=== PATIENT | female | born 1950 | race Caucasian/White ===

== ENCOUNTER 2022-09-02 15:39 | Inpatient (IN) ==
[2022-09-02] MEDS ORDERED: PEPCID TAB 20 MG ONE (20:52)
[2022-09-02] MEDS: PEPCID TAB 20 MG PO SCH (20:59)
[2022-09-02] MEDS: NORCO 5/325 MG TAB PO PRN (20:59)
[2022-09-02] MEDS: AMBIEN PO PRN (22:00)
--- NOTE | 2022-09-02 22:10 | DR.H&P ---
H&P History & Physical for Day of: H&P Date: 09/02/22 Chief Complaint Chief Complaint: Left leg pain and draining area of left proximal anterior thigh. Evaluation included CT showing 7 x 7.5x 6 cm abscess extending down to the left femoral arthroplasty. Left LE arterial ultrasound showed no arterial flow on the left leg from the popliteal to the foot. Venous doppler shows no DVT. Significant pain and swelling of both legs with skin changes consistent with venous insufficiency as well. Allergies Allergies Allergy/AdvReac Type Severity Reaction Status Date / Time No Known Drug Allergies Allergy Verified 09/02/22 19:24 [NKDA] History of Present Illness History of Present Illness: See above. History of diabetes , chronic pain and hypertension Past Medical History Past Medical History: Arthritis (b/l knee replacments, left hip replacement x 2), Diabetes, Dyslipidemia, GERD and Hypertension Past Surgical History Surgical History: Joint Replacement (both knees and left hip twice. ) Family History Family Medical History: Diabetes Mellitus Social History Does patient currently use any type of tobacco product: No Have you used tobacco products in the last 12 months: No Does any household member use tobacco: No Alcohol Use: None Medications Home Medications: No Known Drug Allergies [NKDA] Allergy (Verified 09/02/22 19:24) Labs Labs: WBC=8.5, HGB=11.4, IQA=342 K, MK=035, K+=3.5, GH=711, CO2=25, CR=1.0,BUN=15, CA=8.7, ONYOOVB=452 Review of Systems Constitutional: See HPI Eyes: No Symptoms Reported ENT: No Symptoms Reported Respiratory: No Symptoms Reported Cardiovascular: No Symptoms Reported Gastrointestinal: No Symptoms Reported Genitourinary: No Symptoms Reported Musculoskeletal: See HPI Skin: See HPI Neurological: No Symptoms Reported Physical Exam Vital Signs: Respiratory Rate 20 T=97.6, P=70, 121/70 Oriented: Normal, Time, Person and Place Eyes: Normal Ear: Normal Nose: Normal Throat: Normal Respiratory: Clear Throughout Cardiovascular: Normal : Normal Auscultation: Bowel Sounds: Normal Palpation: Normal Tenderness: Normal Skin: Other (Purulent drainage from anterior proximal anterior thigh, skin discoloration of then LE consistent with venous insufficiency) Musculoskeletal: Normal Psychiatric: Normal Mood Description: Calm Affect: Normal Speech Pattern: Clear Assessment/Plan (1) Abscess of left thigh: Status: Acute Plan: incise and drain left thigh abscess in OR tomorrow and place wound vacuum. IV antibiotics (2) Atherosclerosis of [place] arteries of extremities with rest pain, left leg: Status: Acute Plan: After we deal with the abscess may need revascularization of the left leg. Will need to study the right leg as well. (3) Type 2 diabetes mellitus without complications: Status: Acute Plan: sliding scale insulin (4) Essential (primary) hypertension: Status: Acute Plan: home medications (5) Gastro-esophageal reflux disease without esophagitis: Status: Acute Plan: protonix (6) Arthritis: Status: Acute Review H&P Reviewed: Yes Patient was examined?: Yes
[2022-09-02 22:35] VITALS: BMI 30.9
[2022-09-02] MEDS: LR 1,000 ML IV 1,000 ML IV SCH (22:59)
[2022-09-02] MEDS: ZOSYN VIAL 3.375 GRAMS 3.375 G in NS 100 ML IV 100 ML IV SCH (23:00)
[2022-09-03] MEDS: ZOSYN VIAL 3.375 GRAMS 3.375 G in NS 100 ML IV 100 ML IV SCH ×3 (04:59→21:02)
[2022-09-03] MEDS: NORCO 5/325 MG TAB PO PRN ×3 (05:00→18:52)
[2022-09-03 06:44] LABS: ALANINE AMINOTRANSFERASE 8 Units/L (12-78); ALBUMIN 2.2 g/dL (3.4-5.0); ALKALINE PHOSPHATASE 135 Units/L (46-116); ASPARTATE AMINO TRANSFERASE 23 Units/L (15-37); BLOOD UREA NITROGEN 10 mg/dL (7-18); CALCIUM 8.4 mg/dL (8.5-10.1); CARBON DIOXIDE 25.5 mmol/L (21-32); CHLORIDE 108 mmol/L (98-107); COR CA(FOR HYPOALB) 9.8 mg/dL (8.5-10.1); CREATININE 0.94 mg/dL (0.55-1.02); SODIUM 143 mmol/L (136-145); TOTAL PROTEIN 7.5 g/dL (6.4-8.2); eGFR NON BLACK RACES > 60 (>60)
[2022-09-03 06:47] LABS: BASOPHILS # (AUTO) 0.1 X10^3/uL (0.0-0.1); BASOPHILS % (AUTO) 1.3 % (0.2-1.0); EOSINOPHILS # (AUTO) 0.3 x10^3/uL (0.0-0.2); EOSINOPHILS % (AUTO) 3.5 % (0.9-2.9); HEMATOCRIT 32.7 % (36.0-47.0); HEMOGLOBIN 10.9 g/dL (12.0-16.0); LYMPHOCYTES # (AUTO) 2.1 X10^3/uL (1.3-2.9); LYMPHOCYTES % (AUTO) 24.6 % (21.0-51.0); MEAN CORPUSCULAR HEMOGLOBIN 27.1 pg (27.0-34.0); MEAN CORPUSCULAR HGB CONC 33.5 g/dL (33.0-35.0); MEAN CORPUSCULAR VOLUME 81.1 fL (80.0-100.0); MEAN PLATELET VOLUME 8.7 fL (7.4-11.0); MONOCYTES # (AUTO) 0.6 x10^3/uL (0.3-0.8); MONOCYTES % (AUTO) 6.8 % (0.0-13.0); NEUTROPHILS # (AUTO) 5.5 x10^3/uL (2.2-4.8); NEUTROPHILS % (AUTO) 63.8 % (42.0-75.0); RED BLOOD COUNT 4.03 X10^6/uL (3.5-5.4); RED CELL DISTRIBUTION WIDTH 17.1 % (11.6-16.5); WHITE BLOOD COUNT 8.6 X10^3/uL (3.6-10.0)
[2022-09-03 07:40] LABS: ANISOCYTOSIS SLIGHT; PLATELET MORPHOLOGY COMMENT NORMAL (NORMAL)
[2022-09-03] MEDS: ZESTRIL TAB 40 MG PO SCH (09:03)
[2022-09-03] MEDS: PEPCID TAB 20 MG PO SCH ×2 (09:27→21:01)
[2022-09-03] MEDS: ZyrTEC TAB 10 MG PO SCH (09:28)
[2022-09-03] MEDS: PROTONIX TAB 40 MG PO SCH (09:28)
[2022-09-03] MEDS: LR 1,000 ML IV 1,000 ML IV SCH (12:05)
--- NOTE | 2022-09-03 13:19 | RAD ---
HISTORYpre op vascular procedure Relevant Clinical InformationSTUDYCHEST, 1 VIEWCOMPARISONNone available.FINDINGSThe trachea is midline. The cardiomediastinal silhouette is enlarged. Chronic interstitial densities/changes are seen throughout the lung re[place], suggesting chronic bronchitis. Please correlate medically. The remaining lungs are clear without focal infiltrate or effusion. The bony thorax is unremarkable.IMPRESSIONAs above.Electronically signed by: KEVIN FELDER III (Sep 03, 2022 13:17:46)
[2022-09-03] MEDS ORDERED: NS 100 ML IV 100 ML ONE (14:49)
[2022-09-03] MEDS ORDERED: NS 1,000 ML IV 1,000 ML ONE (14:49)
[2022-09-03] MEDS ORDERED: ANCEF VIAL 1 GRAM ONE (14:49)
[2022-09-03] MEDS ORDERED: DIPRIVAN VIAL 40 ML ONE (15:07)
[2022-09-03] MEDS ORDERED: XYLOCAINE 2 % (PLAIN) ONE (15:07)
[2022-09-03] MEDS ORDERED: FENTANYL VIAL INJ 100 mcg ONE (15:11)
[2022-09-03] MEDS ORDERED: MARCAINE/EPINEPHRINE ONE (15:19)
[2022-09-03] MEDS ORDERED: BETADINE SOLN ONE (15:26)
[2022-09-03] MEDS ORDERED: KETAMINE HCL ONE (15:28)
--- NOTE | 2022-09-03 16:01 | OR.IMMED ---
IMMEDIATE POST-OP NOTE Immediate Post-Op Note Pre-Op Diagnosis: abscess left anterior proximal thigh Post-Op Diagnosis: same, no obvious direct connection to the stem of the hip replacement Procedure: Incise and drain left thigh abscess, place wound vacuum Description of Procedure: see operative note Surgeon/Customer Success Associate: Sabino Findings: as above, Abscess cavity 10 x 5 x 7 cm Estimated Blood Loss: minimal Complications: none Progress Notes: return to floor, continue IV antibiotics and wound vacuum, Will address occluded arterial flow of left leg next week. Final Diagnosis: As above
[2022-09-03] MEDS: AMBIEN PO PRN (21:01)
[2022-09-04] MEDS: NORCO 5/325 MG TAB PO PRN ×4 (00:58→20:10)
[2022-09-04] MEDS: LR 1,000 ML IV 1,000 ML IV SCH ×2 (00:58→14:05)
[2022-09-04] MEDS: ZOSYN VIAL 3.375 GRAMS 3.375 G in NS 100 ML IV 100 ML IV SCH ×3 (05:25→21:32)
[2022-09-04 06:41] LABS: BASOPHILS # (AUTO) 0.1 X10^3/uL (0.0-0.1); BASOPHILS % (AUTO) 1.2 % (0.2-1.0); EOSINOPHILS # (AUTO) 0.2 x10^3/uL (0.0-0.2); EOSINOPHILS % (AUTO) 3.3 % (0.9-2.9); HEMOGLOBIN 10.3 g/dL (12.0-16.0); LYMPHOCYTES % (AUTO) 29.3 % (21.0-51.0); MEAN CORPUSCULAR HEMOGLOBIN 26.8 pg (27.0-34.0); MEAN CORPUSCULAR HGB CONC 33.1 g/dL (33.0-35.0); MEAN CORPUSCULAR VOLUME 80.9 fL (80.0-100.0); MEAN PLATELET VOLUME 7.7 fL (7.4-11.0); MONOCYTES # (AUTO) 0.5 x10^3/uL (0.3-0.8); MONOCYTES % (AUTO) 7.1 % (0.0-13.0); NEUTROPHILS # (AUTO) 4.1 x10^3/uL (2.2-4.8); NEUTROPHILS % (AUTO) 59.1 % (42.0-75.0); RED BLOOD COUNT 3.84 X10^6/uL (3.5-5.4); RED CELL DISTRIBUTION WIDTH 17.2 % (11.6-16.5)
[2022-09-04 06:53] LABS: ALANINE AMINOTRANSFERASE 8 Units/L (12-78); ALBUMIN 2.1 g/dL (3.4-5.0); ALKALINE PHOSPHATASE 133 Units/L (46-116); ASPARTATE AMINO TRANSFERASE 19 Units/L (15-37); BLOOD UREA NITROGEN 8 mg/dL (7-18); CALCIUM 8.1 mg/dL (8.5-10.1); CARBON DIOXIDE 24.2 mmol/L (21-32); CHLORIDE 107 mmol/L (98-107); COR CA(FOR HYPOALB) 9.6 mg/dL (8.5-10.1); COR NA(FOR HYPERGLY) 142 mmol/L (136-145); CREATININE 0.94 mg/dL (0.55-1.02); SODIUM 142 mmol/L (136-145); TOTAL PROTEIN 6.9 g/dL (6.4-8.2); eGFR NON BLACK RACES > 60 (>60)
[2022-09-04] MEDS ORDERED: KLOR-CON PO PRN (07:14)
[2022-09-04] MEDS ORDERED: POTASSIUM CHL 60 MEQ/NS 0.45% 500 ML IV PRN (07:14)
[2022-09-04] MEDS ORDERED: POTASSIUM CHLORIDE LIQ 20 MEQ UDC PO PRN (07:14)
[2022-09-04] MEDS ORDERED: MICRO K EXTEN CAP 10 MEQ PO PRN (07:14)
[2022-09-04] MEDS ORDERED: POTASSIUM CHL 40 MEQ/NS 0.45% 500 ML IV PRN (07:14)
[2022-09-04] MEDS ORDERED: K-RIDER 10 MEQ/NS 100 ML 10 MEQ/100 ML BAG IV PRN (07:14)
[2022-09-04] MEDS: ZESTRIL TAB 40 MG PO SCH (08:27)
[2022-09-04] MEDS: PEPCID TAB 20 MG PO SCH ×2 (08:27→20:42)
[2022-09-04] MEDS: ZyrTEC TAB 10 MG PO SCH (08:28)
[2022-09-04] MEDS: PROTONIX TAB 40 MG PO SCH (08:28)
--- NOTE | 2022-09-04 08:56 | CT ---
HISTORYNON HEALING WOUND LT LEG. Hypertension. Diabetes mellitus.STUDYCTA AORTA WITH RUNOFFCOMPARISONNoneTECHNIQUEMultiple CT axial images of the abdomen, pelvis, and lower extremity runoff were obtained before and after using IV contrast. 3D reconstructions utilizing axial MIPS imaging was performed and reviewed. Dose reduction techniques including Automated Exposure Control (AEC) and adjustment of mA and kV were utilized.Stenoses are measured using NASCET criteria.FINDINGSWithout contrast: Atherosclerotic calcification is present in the coronary arteries, aorta, and major branches. Bilateral kidney stones are present. Largest is lower pole right kidney measuring 14 mm. Bilateral common iliac vein stents are present. Left hip prosthesis is present. Bilateral knee prostheses are present. There is also fixation hardware in the right foot.With contrast: The aorta has a normal caliber with no aneurysm, dissection, or stenosis. All 3 mesenteric vessels are patent. There is a single patent artery to each kidney.Common iliac and external iliac arteries are patent with no significant stenosis. Both internal iliac arteries are also patent.Left leg: Moderate diffuse disease is seen in the superficial femoral artery and in the popliteal artery without focal stenosis. All 3 vessels are patent at the trifurcation in the proximal calf. These extend to the foot. The dominant vessel is the posterior tibial artery.Right leg: Superficial femoral artery is widely patent without focal stenosis. There is a moderate to severe focal stenosis in the popliteal artery above the knee joint surface. The anterior tibial artery is patent and is the only single continuous vessel to the foot. Tibioperoneal trunk is occluded but geniculate collaterals reconstitute the peroneal artery in the posterior tibial artery high in the calf. The reconstituted vessels also extend to the foot.Body: Right adrenal nodule measures 29 mm. This has indeterminate Hounsfield units. Statistically it is probably an adenoma but it does not meet the imaging criteria for this.No hydronephrosis. No mass or inflammation. There are diverticula in the colon. But there is no wall thickening or pericolonic edema to suggest acute diverticulitis. Inguinal lymphadenopathy is borderline, left side more than right. This is probably reactive. There is atrophy of the anterior compartment musculature left thigh when compared to the right side. Subcutaneous edema is seen in the lower legs and ankles bilaterally, left side more than right.IMPRESSION1. Moderate atherosclerosis but with no significant inflow or outflow stenosis to the left foot2. Moderate right popliteal artery focal stenosis with single-vessel runoff to the right foot3. Indeterminate right adrenal nodule4. Nonobstructing renal calculi5. Colonic diverticulaElectronically signed by: Juan Diego Romeo (Sep 04, 2022 08:54:45)
[2022-09-04] MEDS: K-DUR TAB 20 MEQ PO PRN ×2 (10:34→17:48)
[2022-09-04] MEDS: NovoLIN R (or HumuLIN R) SC PRN ×2 (11:18→17:48)
[2022-09-04] MEDS ORDERED: CATAPRES TAB 0.1 MG PO ONE (12:41)
[2022-09-04] MEDS: FLAGYL TAB 500 MG PO SCH ×2 (13:19→21:33)
[2022-09-04] MEDS: IMODIUM CAP 2 MG PO PRN (14:10)
--- NOTE | 2022-09-04 18:53 | NOTE.SOAP ---
Soap Note Note for Day of Date of Exam: 09/04/22 Subjective Data Subjective Data: POD # 1 after I and D of left thight abscess and placement of wound vacuum. Had onset diarrhea anss stolli positive for C. difficile . Had CTA of aorta with runoff. Noted by nursing service to be hypertensive. Objective Data Temperature: 97.3 F Pulse Rate: 82 Respiratory Rate: 18 Blood Pressure: 171/72 O2 Sat by Pulse Oximetry: 94 Objective Data: Wound vacuum in place left thigh. Hypertensive despite her home mediactions , Onset of diarrhea and stool positive for C. difficile. CTA shows no obvious arterial flow abnormality of the left leg. Assessment Assessment: 1) abscess left thigh 2) Hypertension) 3) C.difficile 4) Question of arterial problem left leg. Plan Plan: Continue wound vaccum and IV antibiotics, PO Flagyl for C. difficile, Hypertension protocol , Will not need arterial intervention left leg. Will seek home health consult.
[2022-09-04] MEDS: AMBIEN PO PRN (20:45)
[2022-09-04] MEDS: MAGNESIUM SULFATE 1 GRAM/100 mL PREMIX 1 G/100 ML BAG IV PRN ×2 (21:34→22:31)
[2022-09-05] MEDS: ZOSYN VIAL 3.375 GRAMS 3.375 G in NS 100 ML IV 100 ML IV SCH ×3 (05:14→21:28)
[2022-09-05] MEDS: LR 1,000 ML IV 1,000 ML IV SCH ×2 (05:15→17:17)
[2022-09-05 05:17] LABS: BASOPHILS # (AUTO) 0.1 X10^3/uL (0.0-0.1); EOSINOPHILS # (AUTO) 0.3 x10^3/uL (0.0-0.2); EOSINOPHILS % (AUTO) 4.7 % (0.9-2.9); HEMATOCRIT 30.7 % (36.0-47.0); HEMOGLOBIN 10.1 g/dL (12.0-16.0); LYMPHOCYTES # (AUTO) 1.9 X10^3/uL (1.3-2.9); LYMPHOCYTES % (AUTO) 28.9 % (21.0-51.0); MEAN CORPUSCULAR HEMOGLOBIN 26.6 pg (27.0-34.0); MEAN CORPUSCULAR VOLUME 80.7 fL (80.0-100.0); MEAN PLATELET VOLUME 7.7 fL (7.4-11.0); MONOCYTES # (AUTO) 0.4 x10^3/uL (0.3-0.8); MONOCYTES % (AUTO) 6.7 % (0.0-13.0); NEUTROPHILS # (AUTO) 3.8 x10^3/uL (2.2-4.8); NEUTROPHILS % (AUTO) 57.7 % (42.0-75.0); WHITE BLOOD COUNT 6.7 X10^3/uL (3.6-10.0)
[2022-09-05] MEDS: FLAGYL TAB 500 MG PO SCH ×3 (05:18→21:28)
[2022-09-05] MEDS: NORCO 5/325 MG TAB PO PRN ×3 (05:20→20:15)
[2022-09-05 05:32] LABS: ALANINE AMINOTRANSFERASE 12 Units/L (12-78); ALBUMIN 2.1 g/dL (3.4-5.0); ALKALINE PHOSPHATASE 133 Units/L (46-116); ASPARTATE AMINO TRANSFERASE 21 Units/L (15-37); BLOOD UREA NITROGEN 9 mg/dL (7-18); CALCIUM 8.1 mg/dL (8.5-10.1); CARBON DIOXIDE 26.4 mmol/L (21-32); CHLORIDE 110 mmol/L (98-107); COR CA(FOR HYPOALB) 9.6 mg/dL (8.5-10.1); COR NA(FOR HYPERGLY) 144 mmol/L (136-145); CREATININE 1.03 mg/dL (0.55-1.02); SODIUM 144 mmol/L (136-145); TOTAL PROTEIN 7.1 g/dL (6.4-8.2); eGFR NON BLACK RACES 56 (>60)
[2022-09-05] MEDS: PROTONIX TAB 40 MG PO SCH (09:03)
[2022-09-05] MEDS: ZESTRIL TAB 40 MG PO SCH (09:03)
[2022-09-05] MEDS: ZyrTEC TAB 10 MG PO SCH (09:03)
[2022-09-05] MEDS: PEPCID TAB 20 MG PO SCH ×2 (09:03→20:14)
[2022-09-05] MEDS: NovoLIN R (or HumuLIN R) SC PRN ×2 (11:35→17:17)
[2022-09-05] MEDS: IMODIUM CAP 2 MG PO PRN (14:10)
[2022-09-05] MEDS: AMBIEN PO PRN (21:00)
--- NOTE | 2022-09-05 23:16 | NOTE.SOAP ---
Soap Note Note for Day of Date of Exam: 09/05/22 Subjective Data Subjective Data: POD # 2 left thigh after I and D abscess of left thight. CTA shows no obvious correctable arterial problem left leg. Objective Data Temperature: 98 F Pulse Rate: 87 Respiratory Rate: 20 Blood Pressure: 175/72 O2 Sat by Pulse Oximetry: 91 Objective Data: Wound vacuum left thigh working well. Cultures growing Pseudomonas growing and sensitive to Cipro. Assessment Assessment: Abscess left thigh. Plan Plan: Continue wound vacuum and d/c IV Zosyn. Start po Cipro.
[2022-09-06] MEDS: LR 1,000 ML IV 1,000 ML IV SCH ×3 (04:49→17:15)
[2022-09-06 05:13] LABS: BASOPHILS # (AUTO) 0.1 X10^3/uL (0.0-0.1); BASOPHILS % (AUTO) 1.2 % (0.2-1.0); EOSINOPHILS # (AUTO) 0.3 x10^3/uL (0.0-0.2); EOSINOPHILS % (AUTO) 4.1 % (0.9-2.9); HEMATOCRIT 30.3 % (36.0-47.0); LYMPHOCYTES # (AUTO) 2.1 X10^3/uL (1.3-2.9); LYMPHOCYTES % (AUTO) 26.6 % (21.0-51.0); MEAN CORPUSCULAR HEMOGLOBIN 26.7 pg (27.0-34.0); MEAN CORPUSCULAR HGB CONC 33.1 g/dL (33.0-35.0); MEAN CORPUSCULAR VOLUME 80.7 fL (80.0-100.0); MEAN PLATELET VOLUME 7.9 fL (7.4-11.0); MONOCYTES # (AUTO) 0.5 x10^3/uL (0.3-0.8); MONOCYTES % (AUTO) 6.2 % (0.0-13.0); NEUTROPHILS # (AUTO) 4.9 x10^3/uL (2.2-4.8); NEUTROPHILS % (AUTO) 61.9 % (42.0-75.0); RED BLOOD COUNT 3.75 X10^6/uL (3.5-5.4); RED CELL DISTRIBUTION WIDTH 16.9 % (11.6-16.5); WHITE BLOOD COUNT 7.9 X10^3/uL (3.6-10.0)
[2022-09-06] MEDS: FLAGYL TAB 500 MG PO SCH ×3 (05:15→21:04)
[2022-09-06 05:22] LABS: BLOOD UREA NITROGEN 13 mg/dL (7-18); CALCIUM 7.7 mg/dL (8.5-10.1); CARBON DIOXIDE 24.5 mmol/L (21-32); CHLORIDE 107 mmol/L (98-107); COR NA(FOR HYPERGLY) 143 mmol/L (136-145); CREATININE 1.09 mg/dL (0.55-1.02); SODIUM 142 mmol/L (136-145); eGFR NON BLACK RACES 53 (>60)
[2022-09-06 05:42] LABS: ALANINE AMINOTRANSFERASE 10 Units/L (12-78); ALBUMIN 2.1 g/dL (3.4-5.0); ALKALINE PHOSPHATASE 158 Units/L (46-116); ASPARTATE AMINO TRANSFERASE 16 Units/L (15-37); COR CA(FOR HYPOALB) 9.2 mg/dL (8.5-10.1); TOTAL PROTEIN 6.9 g/dL (6.4-8.2)
[2022-09-06] MEDS: PEPCID TAB 20 MG PO SCH ×2 (08:16→20:35)
[2022-09-06] MEDS: ZyrTEC TAB 10 MG PO SCH (08:16)
[2022-09-06] MEDS: CIPRO TAB 500 MG PO SCH ×2 (08:17→20:34)
[2022-09-06] MEDS: ZESTRIL TAB 40 MG PO SCH (08:17)
[2022-09-06] MEDS: PROTONIX TAB 40 MG PO SCH (08:17)
[2022-09-06] MEDS ORDERED: PHARMACY CONSULT - LOVENOX XX SCH (12:00)
[2022-09-06] MEDS: LOVENOX INJ 40 MG SYR SC SCH (12:45)
[2022-09-06] MEDS: MOTRIN TAB 600 MG PO PRN ×2 (13:57→20:34)
--- NOTE | 2022-09-06 15:57 | DR.OPNOTE ---
OP NOTE Pre-Op Diagnosis: Abscess left anterior thigh Post-Op Diagnosis: same Procedure Date Date Of Procedure: 09/03/22 Procedure: PROCEDURE : INCISION AND DRAINAGE LEFT ANTERIOR PROXIMAL THIGH ABSCESS NARRATIVE : The patient was taken to the operative suite and placed in the Supine position. The left anterior thigh was prepped and draped in sterile fashion. The patient was administered intravenous sedation which was supervised by myself. Time out for the procedure obtained. The skin overlying the anterior thigh wound measuring 10 cm in diameter was infiltrated with 0. 5% Marcaine and a 15 blade knife used to make a 10 cm vertical incision. This was irrigated with normal saline .The wound did not appear to directly contact the hip prosthesis. A deep layer of black foam placed in the base of the wound . An additional layer of black foam placed over this and this all covered with an adhesive drape. A one inch square incision made in the middle of the adhesive drape and the circular trackpad applied to this and the entire wound placed on suction at 150 mm of mercury as continuous section. The patient was taken back to the floor in good condition. Type of Anesthesia: Local (0.5% Marcaine) Anesthesia Comment: plus MAC Findings: 10x5x7 cm abscess left anterior thigh. Clinically does not involve left hip replacement. Type of Fluids Used:: Lactated Ringers EBL: minimal Drains/Tubes Comment: Wound vacuum placed in this wound Cultures: obtained on admission Complications:: none Needle/Sponge Count:: correct Disposition/Condition: Pt. tolerated procedure without difficulty. Extubated in the OR and taken to PACU in stable condition.
[2022-09-06] MEDS: NovoLIN R (or HumuLIN R) SC PRN ×2 (16:48→20:33)
--- NOTE | 2022-09-06 19:23 | NOTE.SOAP ---
Soap Note Note for Day of Date of Exam: 09/06/22 Subjective Data Subjective Data: Patient noted by nursing staff to be confused this AM. Received Ambien both nights and only takes it every other night at home. Now doing well, awake and alert . CTA reviewed and I agree she does nort need any immediate arterial intervention left leg and CTA does not agree with arterial doppler done at [place]. Wound vacuum is working well for the left thigh wound. Objective Data Temperature: 98.6 F Pulse Rate: 84 Respiratory Rate: 22 Blood Pressure: 181/85 O2 Sat by Pulse Oximetry: 94 Objective Data: Wound intact with wound vacuum in place. Both feet are warm. Assessment Assessment: Abscess left thigh s/p incision, drainage and placement of wound vacuum. Plan Plan: Continue antibiotics and wound vacuum. Will seek Home Health to manage wound vacuum and discharge home.
[2022-09-07] MEDS: MOTRIN TAB 600 MG PO PRN ×2 (04:11→08:54)
[2022-09-07] MEDS: FLAGYL TAB 500 MG PO SCH ×3 (05:07→21:11)
[2022-09-07] MEDS: LR 1,000 ML IV 1,000 ML IV SCH ×3 (06:00→21:11)
[2022-09-07] MEDS: ZyrTEC TAB 10 MG PO SCH (08:43)
[2022-09-07] MEDS: PROTONIX TAB 40 MG PO SCH (08:43)
[2022-09-07] MEDS: ZESTRIL TAB 40 MG PO SCH (08:43)
[2022-09-07] MEDS: CIPRO TAB 500 MG PO SCH ×2 (08:43→20:55)
[2022-09-07] MEDS: PEPCID TAB 20 MG PO SCH ×2 (08:43→20:54)
[2022-09-07] MEDS: LOVENOX INJ 40 MG SYR SC SCH (08:44)
[2022-09-07] MEDS ORDERED: DILAUDID INJ ONE (17:36)
[2022-09-07] MEDS ORDERED: DILAUDID INJ IVP ONE (17:49)
--- NOTE | 2022-09-07 18:01 | NOTE.SOAP ---
Soap Note Note for Day of Date of Exam: 09/07/22 Subjective Data Subjective Data: Continues to improve, diarrhea better. Wound without problem. On PO Cipro for sensitive pseudomonas. Awaiting completion of Home Health Consult for home wound vacuum. Objective Data Temperature: 97.7 F Pulse Rate: 83 Respiratory Rate: 20 Blood Pressure: 142/66 Objective Data: Patient has been reported to be confused but is probably related to medications. Patient alert and oriented on my questioning. Wound vacuum changed and wound is smaller with good appearance of granulation, Now 7 x 2.5x5 cm Assessment Assessment: S/P I and D of abscess left anterior thigh. Wound improving . CTA shows no significant arterial lower extremity problem as presumed based upon arterial doppler performed in [place]. Plan Plan: D/C with home health, wound vacuum and po antibiotics when arranged .
[2022-09-07] MEDS: NORCO 5/325 MG TAB PO PRN (20:55)
[2022-09-08] MEDS: LR 1,000 ML IV 1,000 ML IV SCH ×3 (03:49→21:22)
[2022-09-08] MEDS: NORCO 5/325 MG TAB PO PRN ×3 (03:55→21:18)
[2022-09-08] MEDS: FLAGYL TAB 500 MG PO SCH ×3 (05:09→21:22)
[2022-09-08 05:38] LABS: BASOPHILS # (AUTO) 0.1 X10^3/uL (0.0-0.1); BASOPHILS % (AUTO) 1.2 % (0.2-1.0); EOSINOPHILS # (AUTO) 0.4 x10^3/uL (0.0-0.2); EOSINOPHILS % (AUTO) 4.7 % (0.9-2.9); HEMATOCRIT 32.7 % (36.0-47.0); HEMOGLOBIN 10.7 g/dL (12.0-16.0); LYMPHOCYTES # (AUTO) 2.2 X10^3/uL (1.3-2.9); LYMPHOCYTES % (AUTO) 26.1 % (21.0-51.0); MEAN CORPUSCULAR HEMOGLOBIN 26.6 pg (27.0-34.0); MEAN CORPUSCULAR HGB CONC 32.8 g/dL (33.0-35.0); MEAN CORPUSCULAR VOLUME 81.2 fL (80.0-100.0); MEAN PLATELET VOLUME 8.2 fL (7.4-11.0); MONOCYTES # (AUTO) 0.5 x10^3/uL (0.3-0.8); MONOCYTES % (AUTO) 6.4 % (0.0-13.0); NEUTROPHILS # (AUTO) 5.2 x10^3/uL (2.2-4.8); NEUTROPHILS % (AUTO) 61.6 % (42.0-75.0); RED BLOOD COUNT 4.03 X10^6/uL (3.5-5.4); RED CELL DISTRIBUTION WIDTH 17.3 % (11.6-16.5); WHITE BLOOD COUNT 8.5 X10^3/uL (3.6-10.0)
[2022-09-08 05:49] LABS: ALANINE AMINOTRANSFERASE 13 Units/L (12-78); ALBUMIN 2.3 g/dL (3.4-5.0); ALKALINE PHOSPHATASE 144 Units/L (46-116); ASPARTATE AMINO TRANSFERASE 25 Units/L (15-37); BLOOD UREA NITROGEN 11 mg/dL (7-18); CALCIUM 8.5 mg/dL (8.5-10.1); CARBON DIOXIDE 24.2 mmol/L (21-32); CHLORIDE 106 mmol/L (98-107); COR CA(FOR HYPOALB) 9.9 mg/dL (8.5-10.1); COR NA(FOR HYPERGLY) 143 mmol/L (136-145); CREATININE 1.13 mg/dL (0.55-1.02); SODIUM 142 mmol/L (136-145); TOTAL PROTEIN 7.1 g/dL (6.4-8.2); eGFR NON BLACK RACES 50 (>60)
[2022-09-08] MEDS: LOVENOX INJ 40 MG SYR SC SCH (09:38)
[2022-09-08] MEDS: PROTONIX TAB 40 MG PO SCH (09:39)
[2022-09-08] MEDS: PEPCID TAB 20 MG PO SCH ×2 (09:39→21:17)
[2022-09-08] MEDS: ZESTRIL TAB 40 MG PO SCH (09:39)
[2022-09-08] MEDS: CIPRO TAB 500 MG PO SCH ×2 (09:39→21:17)
[2022-09-08] MEDS: ZyrTEC TAB 10 MG PO SCH (09:39)
--- NOTE | 2022-09-08 17:31 | W.DIS.FURT ---
Summary of Discharge Discharge Summary of Date Date of Exam: 09/08/22 Admission Date Date of Admission: 09/02/22 Admission Diagnosis Hospital Course: 71 year old female referred from the emergency room in [place], [place] with an abscess to the left anterior proximal thigh with questionable involvement of a left hip prosthesis. Also noted on ultrasound exam to have no arterial flow of the right lower extremity. Patient was admitted and placed on IV antibiotics and underwent incision and drainage of this left thigh abscess with placement of wound vacuum of this 10 by 5 by 7 cm abscess. She grew pseudomonas sensitive to Ciprofloxacin and has been changed to po Cipro. CT angiogram showed no significant flow abnormality of the left leg. Patient will be discharged home on her usual medications plus Percocet 5 mg tablets, 1 tablet every 6 hrs PRN pain and Cipro 500 mg BID for another seven days. Home health will change the wound vacuum twice a week and I will see her in the office next week. Vital Signs: Vital Signs (72 hours) 09/05/22 23:16 09/06/22 19:23 09/07/22 18:01 Temperature 98 F 98.6 F 97.7 F Pulse Rate 87 84 83 Pulse Rate [Brachial] Respiratory Rate 20 22 20 Blood Pressure 175/72 181/85 142/66 Blood Pressure [Left Arm] O2 Sat by Pulse Oximetry 91 L 94 L Oxygen Delivery Method 09/05/22 20:15 09/05/22 20:00 09/05/22 19:00 Temperature 98 F Pulse Rate Pulse Rate [Brachial] 87 Respiratory Rate 18 20 Blood Pressure Blood Pressure [Left Arm] 175/73 O2 Sat by Pulse Oximetry 91 L Oxygen Delivery Method Room Air Room Air 09/05/22 21:15 09/05/22 23:42 09/06/22 03:57 Temperature 97.8 F 98.4 F Pulse Rate Pulse Rate [Brachial] 89 91 H Respiratory Rate 18 21 20 Blood Pressure Blood Pressure [Left Arm] 164/72 150/68 O2 Sat by Pulse Oximetry 92 L 90 L Oxygen Delivery Method 09/06/22 08:00 09/06/22 07:00 09/06/22 12:00 Temperature 99.3 F 98.1 F Pulse Rate Pulse Rate [Brachial] 92 H 78 Respiratory Rate 22 20 Blood Pressure Blood Pressure [Left Arm] 167/72 152/67 O2 Sat by Pulse Oximetry 91 L 92 L Oxygen Delivery Method Room Air Room Air Room Air 09/06/22 13:57 09/06/22 16:00 09/06/22 14:57 Temperature 98.6 F Pulse Rate Pulse Rate [Brachial] 84 Respiratory Rate 20 22 20 Blood Pressure Blood Pressure [Left Arm] 181/85 O2 Sat by Pulse Oximetry 94 L Oxygen Delivery Method Room Air 09/06/22 19:00 09/06/22 20:00 09/06/22 20:34 Temperature 98.7 F Pulse Rate Pulse Rate [Brachial] 75 Respiratory Rate 19 19 Blood Pressure Blood Pressure [Left Arm] 175/72 O2 Sat by Pulse Oximetry 92 L Oxygen Delivery Method Room Air Room Air 09/06/22 21:34 09/07/22 00:00 09/07/22 04:11 Temperature 98.5 F Pulse Rate Pulse Rate [Brachial] 76 Respiratory Rate 19 20 20 Blood Pressure Blood Pressure [Left Arm] 147/68 O2 Sat by Pulse Oximetry 96 Oxygen Delivery Method Room Air 09/07/22 04:00 09/07/22 05:11 09/07/22 07:00 Temperature 97.6 F Pulse Rate Pulse Rate [Brachial] 84 Respiratory Rate 20 20 Blood Pressure Blood Pressure [Left Arm] 149/72 O2 Sat by Pulse Oximetry 96 Oxygen Delivery Method Room Air Room Air 09/07/22 08:54 09/07/22 08:00 09/07/22 09:54 Temperature 97.8 F Pulse Rate Pulse Rate [Brachial] 81 Respiratory Rate 20 20 18 Blood Pressure Blood Pressure [Left Arm] 147/67 O2 Sat by Pulse Oximetry 95 Oxygen Delivery Method Room Air 09/07/22 12:00 09/07/22 16:00 09/07/22 17:35 Temperature 97.9 F 97.7 F Pulse Rate Pulse Rate [Brachial] 73 83 Respiratory Rate 20 20 20 Blood Pressure Blood Pressure [Left Arm] 146/72 142/66 O2 Sat by Pulse Oximetry 94 L 95 Oxygen Delivery Method Room Air Room Air 09/07/22 18:05 09/07/22 19:00 09/07/22 20:00 Temperature 97.6 F Pulse Rate Pulse Rate [Brachial] 90 Respiratory Rate 18 21 Blood Pressure Blood Pressure [Left Arm] 167/76 O2 Sat by Pulse Oximetry 93 L Oxygen Delivery Method Room Air Room Air 09/07/22 20:55 09/07/22 21:55 09/07/22 23:29 Temperature 97.4 F L Pulse Rate Pulse Rate [Brachial] 84 Respiratory Rate 19 18 20 Blood Pressure Blood Pressure [Left Arm] 176/78 O2 Sat by Pulse Oximetry 94 L Oxygen Delivery Method Room Air 09/08/22 03:55 09/08/22 04:00 09/08/22 04:55 Temperature 98.2 F Pulse Rate Pulse Rate [Brachial] 90 Respiratory Rate 20 20 20 Blood Pressure Blood Pressure [Left Arm] 175/65 O2 Sat by Pulse Oximetry 92 L Oxygen Delivery Method Room Air 09/08/22 07:00 09/08/22 15:17 09/08/22 08:00 Temperature 97.9 F Pulse Rate Pulse Rate [Brachial] 92 H Respiratory Rate 18 20 Blood Pressure Blood Pressure [Left Arm] 143/68 O2 Sat by Pulse Oximetry 90 L Oxygen Delivery Method Room Air Room Air 09/08/22 12:00 09/08/22 16:00 09/08/22 16:17 Temperature 98.3 F 97.8 F Pulse Rate Pulse Rate [Brachial] 90 80 Respiratory Rate 20 20 20 Blood Pressure Blood Pressure [Left Arm] 147/66 146/81 O2 Sat by Pulse Oximetry 91 L 92 L Oxygen Delivery Method Room Air Room Air Labs: Laboratory Last Values WBC 8.5 X10^3/uL (3.6-10.0) 09/08/22 04:20 RBC 4.03 X10^6/uL (3.5-5.4) 09/08/22 04:20 Hgb 10.7 g/dL (12.0-16.0) L 09/08/22 04:20 Hct 32.7 % (36.0-47.0) L 09/08/22 04:20 MCV 81.2 fL (80.0-100.0) 09/08/22 04:20 MCH 26.6 pg (27.0-34.0) L 09/08/22 04:20 MCHC 32.8 g/dL (33.0-35.0) L 09/08/22 04:20 RDW 17.3 % (11.6-16.5) H 09/08/22 04:20 Plt Count 323 X10^3/uL (150.0-450.0) 09/08/22 04:20 Plt Count Comment Adequate (ADEQUATE) 09/03/22 05:49 MPV 8.2 fL (7.4-11.0) 09/08/22 04:20 Neut % (Auto) 61.6 % (42.0-75.0) 09/08/22 04:20 Lymph % (Auto) 26.1 % (21.0-51.0) 09/08/22 04:20 Archer % (Auto) 6.4 % (0.0-13.0) 09/08/22 04:20 Eos % (Auto) 4.7 % (0.9-2.9) H 09/08/22 04:20 Baso % (Auto) 1.2 % (0.2-1.0) H 09/08/22 04:20 Neut # (Auto) 5.2 x10^3/uL (2.2-4.8) H 09/08/22 04:20 Lymph # (Auto) 2.2 X10^3/uL (1.3-2.9) 09/08/22 04:20 Archer # (Auto) 0.5 x10^3/uL (0.3-0.8) 09/08/22 04:20 Eos # (Auto) 0.4 x10^3/uL (0.0-0.2) H 09/08/22 04:20 Baso # (Auto) 0.1 X10^3/uL (0.0-0.1) 09/08/22 04:20 Absolute Nucleated RBC 0.0 /100WBC 09/08/22 04:20 Plt Morphology Comment Normal (NORMAL) 09/03/22 05:49 RBC Morphology Abnormal (NORMAL) A 09/03/22 05:49 Anisocytosis Slight A 09/03/22 05:49 Sodium 142 mmol/L (136-145) 09/08/22 04:20 Corrected Sodium 143 mmol/L (136-145) 09/08/22 04:20 Potassium 4.0 mmol/L (3.5-5.1) 09/08/22 04:20 Chloride 106 mmol/L (98-107) 09/08/22 04:20 Carbon Dioxide 24.2 mmol/L (21-32) 09/08/22 04:20 BUN 11 mg/dL (7-18) 09/08/22 04:20 Creatinine 1.13 mg/dL (0.55-1.02) H 09/08/22 04:20 Est GFR (MDRD) Af Amer > 60 (>60) 09/08/22 04:20 Est GFR (MDRD) Non-Af 50 (>60) L 09/08/22 04:20 Glucose 136 mg/dL (65-99) H 09/08/22 04:20 POC Glucose (mg/dL) 228 mg/dL (65-99) H 09/08/22 11:26 Calcium 8.5 mg/dL (8.5-10.1) 09/08/22 04:20 Corrected Calcium 9.9 mg/dL (8.5-10.1) 09/08/22 04:20 Magnesium 2.0 mg/dL (2.0-2.9) 09/05/22 04:48 Total Bilirubin 0.30 mg/dL (0.2-1.0) 09/08/22 04:20 AST 25 Units/L (15-37) 09/08/22 04:20 ALT 13 Units/L (12-78) 09/08/22 04:20 Alkaline Phosphatase 144 Units/L (46-116) H 09/08/22 04:20 Total Protein 7.1 g/dL (6.4-8.2) 09/08/22 04:20 Albumin 2.3 g/dL (3.4-5.0) L 09/08/22 04:20 Globulin 4.8 g/dL (2.5-4.5) H 09/08/22 04:20 Albumin/Globulin Ratio 0.5 Ratio (1.1-2.1) L 09/08/22 04:20 Stl C. diff Tox B Gene Cancelled 09/04/22 11:10 Stl C. diff [id number] Cancelled 09/04/22 11:10 C. difficile Toxin A&B Negative (NEGATIVE) 09/04/22 09:17 Reason For Visit: LEFT ARTERIAL POPLITEAL OCCLUSION, Discharge Date Discharge Date: 09/08/22 Discharge Diagnosis All Active Problems (Updated 09/02/22 @ 23:39 by Johnny Gallo) Abscess of left thigh (Acute) Atherosclerosis of [place] arteries of extremities with rest pain, left leg (Acute) Arthritis (Acute) Gastro-esophageal reflux disease without esophagitis (Acute) Essential (primary) hypertension (Acute) Type 2 diabetes mellitus without complications (Acute) Plan of Treatment: Continue with present treatment and follow up plan. Pt is to keep follow up appointment as instructed and take medications as ordered. Discharge Medications Discharge Medications: No Known Drug Allergies [NKDA] Allergy (Verified 09/02/22 19:24) CONTINUE taking the following medications dexlansoprazole 30 mg capsule,biphase delayed release (Dexilant) 30 mg PO QDAY 09/03/22 [History] hydrocodone 7.5 mg-acetaminophen 325 mg tablet 1 tab PO QID PRN 09/03/22 [History] insulin degludec 100 unit/mL (3 mL) subcutaneous pen (Tresiba FlexTouch U-100 insulin) ea subcut 09/03/22 [History] lisinopril 40 mg tablet 40 mg PO QDAY 09/03/22 [History] montelukast 10 mg tablet 10 mg PO QDAY 09/03/22 [History] omeprazole 20 mg capsule,delayed release 20 mg PO QDAY 09/03/22 [History] sitagliptin 50 mg-metformin 500 mg tablet (Janumet) 1 tab PO BID 09/03/22 [History] New Prescriptions ciprofloxacin HCl 500 mg tablet (Cipro) 500 mg PO BID #12 tabs 09/08/22 [Rx] oxycodone-acetaminophen 5 mg-325 mg tablet (Percocet) 1 tab PO Q6H PRN #30 tabs 09/08/22 [Rx] Discharge Disposition Assessment: Abscess left anterior, proximal thigh Discharge Plan Discharge Plan Hospital Course: 71 year old female referred from the emergency room in [place], [place] with an abscess to the left anterior proximal thigh with questionable involvement of a left hip prosthesis. Also noted on ultrasound exam to have no arterial flow of the right lower extremity. Patient was admitted and placed on IV antibiotics and underwent incision and drainage of this left thigh abscess with placement of wound vacuum of this 10 by 5 by 7 cm abscess. She grew pseudomonas sensitive to Ciprofloxacin and has been changed to po Cipro. CT angiogram showed no significant flow abnormality of the left leg. Patient will be discharged home on her usual medications plus Percocet 5 mg tablets, 1 tablet every 6 hrs PRN pain and Cipro 500 mg BID for another seven days. Home health will change the wound vacuum twice a week and I will see her in the office next week. Patient Disposition: HOME HEALTH SERVICE Condition: Stable Health Concerns: Post Hospitalization: new medications and changes needed to prevent readmission or further decline. Pt educated and given instructions on all concerns. Care Plan Goals: Problem: Pain/Alteration in Comfort Goal: Improve/ Resolve Pain; Achieve Pain Tolerance Instructions: Take pain medications as prescribed. Contact your primary care provider if your pain is unrelieved or worsens. Follow up with primary care provider as directed. Plan of Treatment: Continue with present treatment and follow up plan. Pt is to keep follow up appointment as instructed and take medications as ordered. Assessment: Abscess left anterior, proximal thigh Prescription drug monitoring program results: PDMP reviewed with concerns identified Prescriptions: New oxycodone-acetaminophen [Percocet] 5-325 mg Tablet 1 tab PO Q6H MDD 4 PRNQty: 30 0RF ciprofloxacin HCl [Cipro] 500 mg Tablet 500 mg PO BID Qty: 12 0RF Continued hydrocodone-acetaminophen 7.5-325 mg tablet 1 tab PO QID PRN omeprazole 20 mg capsule,delayed release(DR/EC) 20 mg PO QDAY montelukast 10 mg tablet 10 mg PO QDAY lisinopril 40 mg tablet 40 mg PO QDAY Janumet 50-500 mg tablet 1 tab PO BID dexlansoprazole [Dexilant] 30 mg capsule,biphase delayed releas 30 mg PO QDAY insulin degludec [Tresiba FlexTouch U-100] 100 unit/mL (3 mL) insulin pen SUBCUT Label Comments: [NO ORIGINAL SIG] Follow ups/Referrals Follow ups/Referrals: Johnny Gallo [Primary Care Provider] - 09/16/22 2:00 pm Instructions Instructions: Type 2 Diabetes Mellitus, Diagnosis, Adult, Negative Pressure Wound Therapy Home Guide, Skin Abscess, Skin Abscess, [id number], Arthritis, Living With Diabetes, Form - Diabetes Action Plan Stand Alone Forms: Excuse From Work or School, Precautions for COVID19, [facility], Patient Portal, Social Distancing
[2022-09-08] MEDS: NovoLIN R (or HumuLIN R) SC PRN (21:23)
[2022-09-09] MEDS: NORCO 5/325 MG TAB PO PRN (04:16)
[2022-09-09] MEDS: FLAGYL TAB 500 MG PO SCH (05:08)
[2022-09-09] MEDS: CIPRO TAB 500 MG PO SCH (09:01)
[2022-09-09] MEDS: LOVENOX INJ 40 MG SYR SC SCH (09:01)
[2022-09-09] MEDS: ZyrTEC TAB 10 MG PO SCH (09:01)
[2022-09-09] MEDS: PEPCID TAB 20 MG PO SCH (09:02)
[2022-09-09] MEDS: PROTONIX TAB 40 MG PO SCH (09:02)
[2022-09-09] MEDS: ZESTRIL TAB 40 MG PO SCH (09:02)
[2022-09-09 11:45] VITALS: BP 143/65
[2022-09-10] MEDS ORDERED: PEPCID TAB 20 MG PO SCH (09:00)
== END 2022-09-09 10:45 | disposition home health service (06) | DRG 603 ==
LOC: MED/SURG 18:15
PROVIDERS: ADMIT Surgery; ATTEND Surgery
DX: M19.90 Unspecified osteoarthritis, unspecified site; E11.65 Type 2 diabetes mellitus with hyperglycemia; B96.5 Pseudomonas (aeruginosa) (mallei) (pseudomallei) as the cause of diseases classified elsewhere; L02.416 Cutaneous abscess of left lower limb; I70.222 Atherosclerosis of native arteries of extremities with rest pain, left leg; K21.9 Gastro-esophageal reflux disease without esophagitis; A04.72 Enterocolitis due to Clostridium difficile, not specified as recurrent; I10 Essential (primary) hypertension

== ENCOUNTER 2023-03-08 06:39 | Inpatient (IN) ==
[2023-03-08] MEDS ORDERED: ANCEF VIAL 1 GRAM ONE (06:59)
[2023-03-08] MEDS ORDERED: NS 100 ML IV 100 ML ONE (06:59)
[2023-03-08] MEDS ORDERED: NS 1,000 ML IV 1,000 ML ONE (07:00)
[2023-03-08] MEDS ORDERED: BETADINE SOLN ONE (07:15)
[2023-03-08] MEDS ORDERED: MARCAINE/EPINEPHRINE ONE (07:33)
[2023-03-08] MEDS ORDERED: FENTANYL VIAL INJ 250 mcg ONE (07:40)
[2023-03-08] MEDS ORDERED: VERSED ONE (07:40)
[2023-03-08] MEDS ORDERED: DIPRIVAN VIAL 20 ML ONE (07:41)
[2023-03-08] MEDS ORDERED: FENTANYL VIAL INJ 100 mcg ONE (07:41)
[2023-03-08] MEDS ORDERED: KETAMINE HCL ONE (07:44)
[2023-03-08] MEDS: DILAUDID INJ IVP PRN ×4 (08:28→21:22)
--- NOTE | 2023-03-08 08:28 | OR.IMMED ---
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
[2023-03-08] MEDS ORDERED: AMBIEN PO PRN (08:31)
[2023-03-08 10:02] VITALS: BMI 29.5
[2023-03-08] MEDS: LR 1,000 ML IV 1,000 ML IV SCH ×2 (10:24→21:58)
[2023-03-08] MEDS: PREVACID PO SCH (10:25)
[2023-03-08] MEDS: ZESTRIL TAB 40 MG PO SCH (10:25)
[2023-03-08] MEDS: ZOSYN VIAL 3.375 GRAMS 3.375 G in NS 100 ML IV 100 ML IV SCH ×3 (10:25→21:22)
--- NOTE | 2023-03-08 17:37 | DR.OPNOTE ---
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 Type of Anesthesia: Local Anesthesia Comment: plus MAC Findings: chronic wound left proximal anterior lateral thigh, S/P abscess of this area incision and drainage and wound treated with wound vacuum and skin substitutes. Specimen/Pathology: all wound excision sent to pathology Type of Fluids Used:: Lactated Ringers EBL: < 10 cc Cultures: yes Complications:: none Needle/Sponge Count:: correct Disposition/Condition: Pt. tolerated procedure without difficulty. Extubated in the OR and taken to PACU in stable condition.
[2023-03-08] MEDS: SINGULAIR TAB 10 MG PO SCH (21:21)
[2023-03-09] MEDS: DILAUDID INJ IVP PRN ×5 (01:42→19:44)
[2023-03-09] MEDS: ZOSYN VIAL 3.375 GRAMS 3.375 G in NS 100 ML IV 100 ML IV SCH ×3 (06:21→21:38)
[2023-03-09] MEDS: ZESTRIL TAB 40 MG PO SCH (09:18)
[2023-03-09] MEDS: PREVACID PO SCH (09:18)
[2023-03-09 09:51] LABS: BASOPHILS # (AUTO) 0.1 X10^3/uL (0.0-0.1); BASOPHILS % (AUTO) 0.9 % (0.2-1.0); EOSINOPHILS # (AUTO) 0.2 x10^3/uL (0.0-0.2); HEMATOCRIT 29.7 % (36.0-47.0); HEMOGLOBIN 9.6 g/dL (12.0-16.0); LYMPHOCYTES # (AUTO) 1.2 X10^3/uL (1.3-2.9); LYMPHOCYTES % (AUTO) 22.1 % (21.0-51.0); MEAN CORPUSCULAR HEMOGLOBIN 25.9 pg (27.0-34.0); MEAN CORPUSCULAR HGB CONC 32.4 g/dL (33.0-35.0); MEAN PLATELET VOLUME 8.1 fL (7.4-11.0); MONOCYTES # (AUTO) 0.3 x10^3/uL (0.3-0.8); MONOCYTES % (AUTO) 6.2 % (0.0-13.0); NEUTROPHILS # (AUTO) 3.8 x10^3/uL (2.2-4.8); NEUTROPHILS % (AUTO) 67.8 % (42.0-75.0); PLATELET COUNT 181 X10^3/uL (150.0-450.0); RED BLOOD COUNT 3.71 X10^6/uL (3.5-5.4); RED CELL DISTRIBUTION WIDTH 18.7 % (11.6-16.5); WHITE BLOOD COUNT 5.6 X10^3/uL (3.6-10.0)
[2023-03-09 10:02] LABS: ALANINE AMINOTRANSFERASE 11 Units/L (12-78); ALBUMIN 2.1 g/dL (3.4-5.0); ALKALINE PHOSPHATASE 142 Units/L (46-116); ASPARTATE AMINO TRANSFERASE 16 Units/L (15-37); BLOOD UREA NITROGEN 11 mg/dL (7-18); CALCIUM 7.8 mg/dL (8.5-10.1); CARBON DIOXIDE 26.1 mmol/L (21-32); CHLORIDE 105 mmol/L (98-107); COR CA(FOR HYPOALB) 9.3 mg/dL (8.5-10.1); COR NA(FOR HYPERGLY) 142 mmol/L (136-145); CREATININE 1.02 mg/dL (0.55-1.02); GLUCOSE 262 mg/dL (65-99); SODIUM 138 mmol/L (136-145); TOTAL PROTEIN 6.5 g/dL (6.4-8.2); eGFR NON BLACK RACES 57 (>60)
[2023-03-09] MEDS: LOVENOX INJ 40 MG SYR SC SCH (11:46)
[2023-03-09] MEDS: LR 1,000 ML IV 1,000 ML IV SCH (11:46)
--- NOTE | 2023-03-09 14:38 | DR.OPNOTE ---
OP NOTE Pre-Op Diagnosis: old abscess left anterior thigh , now with sinus tract Post-Op Diagnosis: same Procedure Date Date Of Procedure: 03/08/23 Procedure: PROCEDURE : WIDE EXCISION CHRONIC DRAINING WOUND WITH SINUS OF PROXIMAL LEFT ANTERIOLATERAL THIGH, MEASURING 12X6X4 CM . NARRATIVE : This patient was taken to the operative suite and placed in the supine position. Patient was administered intravenous sedation which was supervised by myself. Entire left anterior lateral thigh was prepped and draped in sterile fashion. Time out for procedure obtained . After timeout an elliptical incision 12x 6 cm was performed over the left proximal anterior lateral thigh. Electrocautery used to excise this chronic wound and chronic sinus tract all the way down to the deep muscle layers. All chronic tissue was removed. There was some fluid which was draining and that was cultured. Hemostasis obtained with electrocautery. Depth of this wound was 4 cm. Total dimensions of wound was 12 x 6 x 4 cm. Black foam was placed over the entire wound and this with adhesive sheet . Foam exposed over a one inch square area and the circular trackpad applied to this and this placed to suction of 125 mm Hg as continuous suction . This was tolerated well. Type of Anesthesia: Local (0.5% Marcaine ) Anesthesia Comment: plus MAC Findings: chronic sinus left proximal anterio-lateral left thigh Type of Fluids Used:: Lactated Ringers EBL: < 10 cc Cultures: yes obtained Complications:: none Needle/Sponge Count:: correct Disposition/Condition: Pt. tolerated procedure without difficulty. Taken to PACU and then to ICU in stable condition.
[2023-03-09] MEDS: NovoLIN R (or HumuLIN R) SC PRN (17:43)
[2023-03-09] MEDS: SINGULAIR TAB 10 MG PO SCH (20:29)
--- NOTE | 2023-03-09 23:27 | NOTE.SOAP ---
Soap Note Note for Day of Date of Exam: 03/09/23 Subjective Data Subjective Data: POD # 1 after excision of left anterior thigh chronic wound and sinus with placement of wound vacuum. Pain now under control since resection. Objective Data Temperature: 99.8 F Pulse Rate: 94 Respiratory Rate: 22 Blood Pressure: 156/69 O2 Sat by Pulse Oximetry: 90 Objective Data: Wound vacuum in place left thigh. Hgb = 9.6, BMP is WNL. WBC= 5.6 Assessment Assessment: s/p resection left anterior thigh wound and place wound vacuum. Plan Plan: Case management to set up Home Health with wound vacuum to be changed 2 to 3 times per week.
[2023-03-10] MEDS: LR 1,000 ML IV 1,000 ML IV SCH ×3 (00:44→13:41)
[2023-03-10] MEDS: DILAUDID INJ IVP PRN ×4 (00:45→14:13)
[2023-03-10] MEDS: ZOSYN VIAL 3.375 GRAMS 3.375 G in NS 100 ML IV 100 ML IV SCH ×2 (05:30→15:04)
[2023-03-10] MEDS: PREVACID PO SCH (08:21)
[2023-03-10] MEDS: ZESTRIL TAB 40 MG PO SCH (08:21)
[2023-03-10] MEDS: LOVENOX INJ 40 MG SYR SC SCH (08:21)
[2023-03-10] MEDS: NovoLIN R (or HumuLIN R) SC PRN (11:39)
--- NOTE | 2023-03-10 14:31 | W.DIS.FURT ---
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 She was admitted after undergoing wide excision and placement of wound vacuum. We got her pain under control with IV Dilaudid. Cultures show Pseudomonas which is sensitive to Cipro. Home health will do the wound vacuum changes. She will be discharged on her usual medications plus Percocet, 5 mg tablets, one every six hours PRN Pain, Imodium for Diarrhea ,ciprofloxacin 500 mg BID And Monistat cream. I will see her in follow up in one week. Vital Signs: Vital Signs (72 hours) 03/09/23 23:26 03/08/23 07:20 03/08/23 07:20 Temperature 99.8 F H 97.8 F Pulse Rate 94 H 80 80 Respiratory Rate 22 18 Blood Pressure 156/69 185/73 O2 Sat by Pulse Oximetry 90 L 100 Oxygen Delivery Method Room Air Oxygen Flow Rate 03/08/23 08:26 03/08/23 08:41 03/08/23 08:28 Temperature Pulse Rate 94 H 91 H Respiratory Rate 17 17 17 Blood Pressure 176/72 171/73 O2 Sat by Pulse Oximetry 95 96 Oxygen Delivery Method Nasal Cannula Nasal Cannula Oxygen Flow Rate 03/08/23 08:58 03/08/23 08:56 03/08/23 09:32 Temperature Pulse Rate 85 74 Respiratory Rate 17 17 16 Blood Pressure 170/57 O2 Sat by Pulse Oximetry 97 100 Oxygen Delivery Method Nasal Cannula Oxygen Flow Rate 03/08/23 09:45 03/08/23 09:45 03/08/23 10:00 Temperature Pulse Rate 71 Respiratory Rate 11 L Blood Pressure 153/66 154/74 O2 Sat by Pulse Oximetry 100 Oxygen Delivery Method Oxygen Flow Rate 03/08/23 10:00 03/08/23 09:28 03/08/23 12:17 Temperature Pulse Rate 66 Respiratory Rate 16 17 17 Blood Pressure O2 Sat by Pulse Oximetry 100 Oxygen Delivery Method Oxygen Flow Rate 03/08/23 12:47 03/08/23 10:15 03/08/23 10:16 Temperature Pulse Rate 67 Respiratory Rate 17 25 H Blood Pressure 146/68 O2 Sat by Pulse Oximetry 100 Oxygen Delivery Method Oxygen Flow Rate 03/08/23 10:16 03/08/23 10:30 03/08/23 10:30 Temperature Pulse Rate 75 65 Respiratory Rate 18 15 Blood Pressure 160/70 O2 Sat by Pulse Oximetry 100 100 Oxygen Delivery Method Oxygen Flow Rate 03/08/23 10:45 03/08/23 10:45 03/08/23 11:00 Temperature Pulse Rate 65 Respiratory Rate 16 Blood Pressure 149/66 145/63 O2 Sat by Pulse Oximetry 98 Oxygen Delivery Method Oxygen Flow Rate 03/08/23 11:00 03/08/23 11:15 03/08/23 11:15 Temperature Pulse Rate 65 69 Respiratory Rate 13 14 Blood Pressure 149/65 O2 Sat by Pulse Oximetry 98 98 Oxygen Delivery Method Oxygen Flow Rate 03/08/23 11:30 03/08/23 11:30 03/08/23 11:45 Temperature Pulse Rate 66 Respiratory Rate 14 Blood Pressure 146/67 147/67 O2 Sat by Pulse Oximetry 98 Oxygen Delivery Method Oxygen Flow Rate 03/08/23 11:45 03/08/23 12:00 03/08/23 12:01 Temperature Pulse Rate 71 72 Respiratory Rate 14 10 L Blood Pressure 164/69 O2 Sat by Pulse Oximetry 98 99 Oxygen Delivery Method Oxygen Flow Rate 03/08/23 12:01 03/08/23 12:15 03/08/23 12:15 Temperature Pulse Rate 78 78 Respiratory Rate 21 22 Blood Pressure 194/78 O2 Sat by Pulse Oximetry 100 100 Oxygen Delivery Method Oxygen Flow Rate 03/08/23 12:30 03/08/23 12:30 03/08/23 12:45 Temperature Pulse Rate 85 78 Respiratory Rate 18 22 Blood Pressure 161/68 O2 Sat by Pulse Oximetry 98 99 Oxygen Delivery Method Oxygen Flow Rate 03/08/23 12:46 03/08/23 12:46 03/08/23 13:00 Temperature Pulse Rate 73 Respiratory Rate 18 Blood Pressure 143/66 157/64 O2 Sat by Pulse Oximetry 98 Oxygen Delivery Method Oxygen Flow Rate 03/08/23 13:00 03/08/23 13:00 03/08/23 13:15 Temperature Pulse Rate 73 Respiratory Rate 17 Blood Pressure 157/64 142/65 O2 Sat by Pulse Oximetry 97 Oxygen Delivery Method Oxygen Flow Rate 03/08/23 13:15 03/08/23 13:30 05/01/23 13:30 Temperature Pulse Rate 74 73 Respiratory Rate 12 14 Blood Pressure 139/65 O2 Sat by Pulse Oximetry 98 97 Oxygen Delivery Method Oxygen Flow Rate 03/08/23 13:45 03/08/23 13:45 03/08/23 14:00 Temperature Pulse Rate 69 Respiratory Rate 14 Blood Pressure 138/62 149/63 O2 Sat by Pulse Oximetry 95 Oxygen Delivery Method Oxygen Flow Rate 03/08/23 14:00 03/08/23 14:15 03/08/23 14:15 Temperature Pulse Rate 70 76 Respiratory Rate 14 14 Blood Pressure 136/61 O2 Sat by Pulse Oximetry 96 95 Oxygen Delivery Method Oxygen Flow Rate 03/08/23 14:30 03/08/23 14:31 03/08/23 14:31 Temperature Pulse Rate 88 93 H Respiratory Rate 28 H 30 H Blood Pressure 162/70 O2 Sat by Pulse Oximetry 97 96 Oxygen Delivery Method Oxygen Flow Rate 03/08/23 14:45 03/08/23 14:45 03/08/23 15:00 Temperature Pulse Rate 74 Respiratory Rate 11 L Blood Pressure 142/64 123/60 O2 Sat by Pulse Oximetry 94 L Oxygen Delivery Method Oxygen Flow Rate 03/08/23 15:00 03/08/23 15:15 03/08/23 15:15 Temperature Pulse Rate 77 71 Respiratory Rate 15 15 Blood Pressure 148/66 O2 Sat by Pulse Oximetry 94 L 92 L Oxygen Delivery Method Oxygen Flow Rate 03/08/23 15:30 03/08/23 15:31 03/08/23 15:31 Temperature Pulse Rate 69 69 Respiratory Rate 12 13 Blood Pressure 149/65 O2 Sat by Pulse Oximetry 92 L 93 L Oxygen Delivery Method Oxygen Flow Rate 03/08/23 15:45 03/08/23 15:45 03/08/23 16:00 Temperature Pulse Rate 66 Respiratory Rate 13 Blood Pressure 147/67 151/65 O2 Sat by Pulse Oximetry 92 L Oxygen Delivery Method Oxygen Flow Rate 03/08/23 16:00 03/08/23 08:54 03/08/23 16:37 Temperature Pulse Rate 71 Respiratory Rate 17 17 Blood Pressure O2 Sat by Pulse Oximetry 91 L Oxygen Delivery Method Room Air Oxygen Flow Rate 03/08/23 16:15 03/08/23 16:15 03/08/23 16:30 Temperature Pulse Rate 78 Respiratory Rate 12 Blood Pressure 169/71 160/70 O2 Sat by Pulse Oximetry 93 L Oxygen Delivery Method Oxygen Flow Rate 03/08/23 16:30 03/08/23 16:45 03/08/23 16:45 Temperature Pulse Rate 72 83 Respiratory Rate 13 19 Blood Pressure 175/72 O2 Sat by Pulse Oximetry 94 L 94 L Oxygen Delivery Method Oxygen Flow Rate 03/08/23 16:48 03/08/23 16:48 03/08/23 17:00 Temperature Pulse Rate 83 Respiratory Rate 36 H Blood Pressure 160/65 161/69 O2 Sat by Pulse Oximetry 95 Oxygen Delivery Method Oxygen Flow Rate 03/08/23 17:00 03/08/23 17:15 03/08/23 17:16 Temperature Pulse Rate 68 78 80 Respiratory Rate 12 17 17 Blood Pressure O2 Sat by Pulse Oximetry 95 93 L 93 L Oxygen Delivery Method Oxygen Flow Rate 03/08/23 17:16 03/08/23 17:07 03/08/23 17:30 Temperature Pulse Rate 73 Respiratory Rate 17 27 H Blood Pressure 158/65 O2 Sat by Pulse Oximetry 93 L Oxygen Delivery Method Oxygen Flow Rate 03/08/23 17:31 03/08/23 17:31 03/08/23 17:45 Temperature Pulse Rate 75 Respiratory Rate 31 H Blood Pressure 160/65 144/64 O2 Sat by Pulse Oximetry 95 Oxygen Delivery Method Oxygen Flow Rate 03/08/23 17:45 03/08/23 17:59 03/08/23 18:00 Temperature Pulse Rate 78 78 Respiratory Rate 20 19 Blood Pressure 142/65 O2 Sat by Pulse Oximetry 92 L 94 L Oxygen Delivery Method Oxygen Flow Rate 03/08/23 19:00 03/08/23 21:22 03/08/23 21:58 Temperature 98.0 F Pulse Rate 66 Respiratory Rate 18 22 19 Blood Pressure 142/74 O2 Sat by Pulse Oximetry 92 L Oxygen Delivery Method Room Air Oxygen Flow Rate 03/08/23 20:00 03/08/23 21:00 03/08/23 22:00 Temperature Pulse Rate 77 75 67 Respiratory Rate 12 24 13 Blood Pressure 152/66 175/74 151/69 O2 Sat by Pulse Oximetry 94 L 98 94 L Oxygen Delivery Method Room Air Room Air Room Air Oxygen Flow Rate 03/08/23 19:00 03/08/23 23:00 03/09/23 00:00 Temperature 97.7 F Pulse Rate 66 61 Respiratory Rate 28 H 14 Blood Pressure 167/69 145/66 O2 Sat by Pulse Oximetry 97 95 Oxygen Delivery Method Room Air Room Air Room Air Oxygen Flow Rate 03/09/23 01:42 03/09/23 01:00 03/09/23 02:00 Temperature Pulse Rate 68 58 L Respiratory Rate 15 15 16 Blood Pressure 155/66 140/65 O2 Sat by Pulse Oximetry 95 94 L Oxygen Delivery Method Nasal Cannula Nasal Cannula Oxygen Flow Rate 03/09/23 03:00 03/09/23 04:00 03/09/23 05:00 Temperature 98.0 F Pulse Rate 66 57 L 58 L Respiratory Rate 15 14 15 Blood Pressure 155/68 152/70 132/61 O2 Sat by Pulse Oximetry 94 L 95 94 L Oxygen Delivery Method Nasal Cannula Nasal Cannula Nasal Cannula Oxygen Flow Rate 03/09/23 06:21 03/09/23 06:00 03/09/23 07:00 Temperature Pulse Rate 65 Respiratory Rate 17 15 Blood Pressure 139/62 O2 Sat by Pulse Oximetry 97 Oxygen Delivery Method Nasal Cannula Room Air Oxygen Flow Rate 03/08/23 23:45 03/09/23 00:00 03/09/23 00:01 Temperature Pulse Rate 72 66 69 Respiratory Rate 21 18 19 Blood Pressure O2 Sat by Pulse Oximetry 96 96 97 Oxygen Delivery Method Oxygen Flow Rate 03/09/23 00:01 03/09/23 00:15 03/09/23 00:30 Temperature Pulse Rate 63 66 Respiratory Rate 16 20 Blood Pressure 145/66 O2 Sat by Pulse Oximetry 95 95 Oxygen Delivery Method Oxygen Flow Rate 03/09/23 00:45 03/09/23 01:00 03/09/23 01:00 Temperature Pulse Rate 63 64 Respiratory Rate 12 15 Blood Pressure 155/66 O2 Sat by Pulse Oximetry 94 L 92 L Oxygen Delivery Method Oxygen Flow Rate 03/09/23 01:15 03/09/23 01:30 03/09/23 01:45 Temperature Pulse Rate 63 61 68 Respiratory Rate 17 16 13 Blood Pressure O2 Sat by Pulse Oximetry 91 L 91 L 92 L Oxygen Delivery Method Oxygen Flow Rate 03/09/23 02:00 03/09/23 02:00 03/09/23 02:15 Temperature Pulse Rate 62 58 L Respiratory Rate 14 12 Blood Pressure 140/65 O2 Sat by Pulse Oximetry 94 L 95 Oxygen Delivery Method Oxygen Flow Rate 03/09/23 02:30 03/09/23 02:45 05/02/23 03:00 Temperature Pulse Rate 62 69 Respiratory Rate 13 16 Blood Pressure 155/68 O2 Sat by Pulse Oximetry 95 98 Oxygen Delivery Method Oxygen Flow Rate 03/09/23 03:00 03/09/23 03:15 03/09/23 03:30 Temperature Pulse Rate 81 69 62 Respiratory Rate 22 22 15 Blood Pressure O2 Sat by Pulse Oximetry 96 96 92 L Oxygen Delivery Method Oxygen Flow Rate 03/09/23 03:45 03/09/23 04:00 03/09/23 04:01 Temperature Pulse Rate 59 L 64 Respiratory Rate 14 13 Blood Pressure 152/70 O2 Sat by Pulse Oximetry 90 L 96 Oxygen Delivery Method Oxygen Flow Rate 03/09/23 04:01 03/09/23 04:15 03/09/23 04:30 Temperature Pulse Rate 62 56 L 60 Respiratory Rate 16 14 15 Blood Pressure O2 Sat by Pulse Oximetry 95 95 98 Oxygen Delivery Method Oxygen Flow Rate 03/09/23 04:45 03/09/23 05:00 03/09/23 05:01 Temperature Pulse Rate 61 58 L 57 L Respiratory Rate 15 15 14 Blood Pressure O2 Sat by Pulse Oximetry 97 95 95 Oxygen Delivery Method Oxygen Flow Rate 03/09/23 05:01 03/09/23 05:15 03/09/23 05:30 Temperature Pulse Rate 64 65 Respiratory Rate 16 14 Blood Pressure 132/61 O2 Sat by Pulse Oximetry 93 L 95 Oxygen Delivery Method Oxygen Flow Rate 03/09/23 05:45 03/09/23 06:00 03/09/23 06:01 Temperature Pulse Rate 61 70 70 Respiratory Rate 16 19 20 Blood Pressure O2 Sat by Pulse Oximetry 94 L 94 L 97 Oxygen Delivery Method Oxygen Flow Rate 03/09/23 06:01 03/09/23 06:15 03/09/23 06:30 Temperature Pulse Rate 63 77 Respiratory Rate 16 24 Blood Pressure 139/62 O2 Sat by Pulse Oximetry 97 95 Oxygen Delivery Method Oxygen Flow Rate 03/09/23 06:45 03/09/23 07:00 03/09/23 07:01 Temperature Pulse Rate 62 59 L 57 L Respiratory Rate 16 14 14 Blood Pressure O2 Sat by Pulse Oximetry 95 94 L 93 L Oxygen Delivery Method Oxygen Flow Rate 03/09/23 07:01 03/09/23 07:15 03/09/23 07:30 Temperature Pulse Rate 55 L 56 L Respiratory Rate 15 14 Blood Pressure 161/71 O2 Sat by Pulse Oximetry 93 L 94 L Oxygen Delivery Method Oxygen Flow Rate 03/09/23 07:45 03/09/23 08:00 03/09/23 08:00 Temperature Pulse Rate 78 69 Respiratory Rate 29 H 25 H Blood Pressure 153/63 O2 Sat by Pulse Oximetry 93 L 93 L Oxygen Delivery Method Oxygen Flow Rate 03/09/23 08:15 03/09/23 08:30 03/09/23 06:51 Temperature Pulse Rate 61 62 Respiratory Rate 17 15 17 Blood Pressure O2 Sat by Pulse Oximetry 89 L 89 L Oxygen Delivery Method Oxygen Flow Rate 03/09/23 09:48 03/09/23 08:45 03/09/23 09:00 Temperature Pulse Rate 68 Respiratory Rate 17 16 Blood Pressure 167/72 O2 Sat by Pulse Oximetry 91 L Oxygen Delivery Method Oxygen Flow Rate 03/09/23 09:00 03/09/23 09:15 03/09/23 09:30 Temperature Pulse Rate 75 63 75 Respiratory Rate 18 15 19 Blood Pressure O2 Sat by Pulse Oximetry 93 L 91 L 94 L Oxygen Delivery Method Oxygen Flow Rate 03/09/23 09:45 03/09/23 10:00 03/09/23 10:00 Temperature Pulse Rate 72 76 Respiratory Rate 19 17 Blood Pressure 161/68 O2 Sat by Pulse Oximetry 93 L 92 L Oxygen Delivery Method Oxygen Flow Rate 03/09/23 10:15 03/09/23 10:30 03/09/23 11:45 Temperature Pulse Rate 61 61 73 Respiratory Rate 15 13 25 H Blood Pressure O2 Sat by Pulse Oximetry 92 L 93 L 94 L Oxygen Delivery Method Oxygen Flow Rate 03/09/23 10:45 03/09/23 11:00 03/09/23 11:00 Temperature Pulse Rate 58 L 66 Respiratory Rate 15 18 Blood Pressure 149/64 O2 Sat by Pulse Oximetry 91 L 90 L Oxygen Delivery Method Oxygen Flow Rate 03/09/23 11:15 03/09/23 11:30 03/09/23 10:18 Temperature Pulse Rate 57 L 73 Respiratory Rate 16 25 H 17 Blood Pressure O2 Sat by Pulse Oximetry 90 L 94 L Oxygen Delivery Method Oxygen Flow Rate 03/09/23 11:45 03/09/23 12:00 03/09/23 12:01 Temperature Pulse Rate 60 61 59 L Respiratory Rate 16 20 17 Blood Pressure O2 Sat by Pulse Oximetry 95 93 L 94 L Oxygen Delivery Method Oxygen Flow Rate 03/09/23 12:01 03/09/23 12:15 03/09/23 12:30 Temperature Pulse Rate 62 55 L Respiratory Rate 18 16 Blood Pressure 179/70 O2 Sat by Pulse Oximetry 96 95 Oxygen Delivery Method Oxygen Flow Rate 03/09/23 12:45 03/09/23 13:00 03/09/23 13:01 Temperature Pulse Rate 69 65 62 Respiratory Rate 26 H 18 15 Blood Pressure O2 Sat by Pulse Oximetry 96 91 L 97 Oxygen Delivery Method Oxygen Flow Rate 03/09/23 13:01 03/09/23 14:10 03/09/23 13:15 Temperature Pulse Rate 65 Respiratory Rate 17 20 Blood Pressure 157/65 O2 Sat by Pulse Oximetry 96 Oxygen Delivery Method Oxygen Flow Rate 03/09/23 13:30 03/09/23 13:45 03/09/23 14:00 Temperature Pulse Rate 65 67 82 Respiratory Rate 17 19 39 H Blood Pressure O2 Sat by Pulse Oximetry 96 95 81 L Oxygen Delivery Method Oxygen Flow Rate 03/09/23 14:01 03/09/23 14:01 03/09/23 14:15 Temperature Pulse Rate 78 77 Respiratory Rate 36 H 17 Blood Pressure 166/70 O2 Sat by Pulse Oximetry 94 L 94 L Oxygen Delivery Method Oxygen Flow Rate 03/09/23 14:30 03/09/23 14:45 03/09/23 15:00 Temperature Pulse Rate 78 77 Respiratory Rate 29 H 21 Blood Pressure 162/71 O2 Sat by Pulse Oximetry 95 95 Oxygen Delivery Method Oxygen Flow Rate 03/09/23 15:00 03/09/23 14:40 03/09/23 07:00 Temperature 98.3 F Pulse Rate 71 Respiratory Rate 27 H 17 Blood Pressure O2 Sat by Pulse Oximetry 94 L Oxygen Delivery Method Oxygen Flow Rate 03/09/23 12:00 03/09/23 16:00 03/09/23 15:15 Temperature 98.6 F 98.2 F Pulse Rate 69 Respiratory Rate 21 Blood Pressure O2 Sat by Pulse Oximetry 91 L Oxygen Delivery Method Cool Aerosol Mask Oxygen Flow Rate 03/09/23 15:30 03/09/23 15:45 03/09/23 16:00 Temperature Pulse Rate 68 66 73 Respiratory Rate 23 16 21 Blood Pressure O2 Sat by Pulse Oximetry 92 L 88 L 88 L Oxygen Delivery Method Oxygen Flow Rate 03/09/23 16:01 03/09/23 16:01 03/09/23 16:01 Temperature Pulse Rate 68 Respiratory Rate 15 Blood Pressure 137/61 137/61 O2 Sat by Pulse Oximetry 92 L Oxygen Delivery Method Oxygen Flow Rate 03/09/23 16:15 03/09/23 16:30 03/09/23 16:45 Temperature Pulse Rate 59 L 62 61 Respiratory Rate 16 18 17 Blood Pressure O2 Sat by Pulse Oximetry 89 L 88 L 89 L Oxygen Delivery Method Oxygen Flow Rate 03/09/23 17:00 03/09/23 17:00 03/09/23 17:15 Temperature Pulse Rate 61 73 Respiratory Rate 18 19 Blood Pressure 142/62 O2 Sat by Pulse Oximetry 88 L 93 L Oxygen Delivery Method Oxygen Flow Rate 03/09/23 19:44 03/09/23 17:30 03/09/23 17:45 Temperature Pulse Rate 84 79 Respiratory Rate 22 25 H 38 H Blood Pressure O2 Sat by Pulse Oximetry 94 L 94 L Oxygen Delivery Method Oxygen Flow Rate 03/09/23 18:00 03/09/23 18:00 03/09/23 18:15 Temperature Pulse Rate 73 73 Respiratory Rate 21 26 H Blood Pressure 171/72 O2 Sat by Pulse Oximetry 95 94 L Oxygen Delivery Method Oxygen Flow Rate 03/09/23 18:30 03/09/23 18:45 03/09/23 19:00 Temperature Pulse Rate 74 67 Respiratory Rate 21 21 Blood Pressure 155/65 O2 Sat by Pulse Oximetry 94 L 93 L Oxygen Delivery Method Oxygen Flow Rate 03/09/23 19:00 03/09/23 19:15 03/09/23 19:30 Temperature Pulse Rate 70 71 82 Respiratory Rate 21 21 24 Blood Pressure O2 Sat by Pulse Oximetry 92 L 91 L 75 L Oxygen Delivery Method Oxygen Flow Rate 03/09/23 19:45 03/09/23 20:00 03/09/23 20:02 Temperature Pulse Rate 89 79 76 Respiratory Rate 19 19 22 Blood Pressure O2 Sat by Pulse Oximetry 94 L 92 L 92 L Oxygen Delivery Method Oxygen Flow Rate 03/09/23 20:02 03/09/23 20:05 03/09/23 20:05 Temperature Pulse Rate 78 Respiratory Rate 25 H Blood Pressure 182/77 182/75 O2 Sat by Pulse Oximetry 93 L Oxygen Delivery Method Oxygen Flow Rate 03/09/23 20:15 03/09/23 20:30 03/09/23 20:45 Temperature Pulse Rate 78 77 73 Respiratory Rate 21 20 25 H Blood Pressure O2 Sat by Pulse Oximetry 94 L 95 93 L Oxygen Delivery Method Oxygen Flow Rate 03/09/23 21:00 03/09/23 21:01 03/09/23 21:01 Temperature 99.8 F H Pulse Rate 75 76 Respiratory Rate 26 H 24 Blood Pressure 156/66 O2 Sat by Pulse Oximetry 90 L 91 L Oxygen Delivery Method Oxygen Flow Rate 03/09/23 19:00 03/09/23 20:14 03/09/23 21:15 Temperature Pulse Rate 78 Respiratory Rate 22 28 H Blood Pressure O2 Sat by Pulse Oximetry 94 L Oxygen Delivery Method Room Air Oxygen Flow Rate 03/09/23 21:30 03/09/23 21:45 03/09/23 22:00 Temperature Pulse Rate 80 79 Respiratory Rate 22 27 H Blood Pressure 134/62 O2 Sat by Pulse Oximetry 93 L 93 L Oxygen Delivery Method Oxygen Flow Rate 03/09/23 22:00 03/09/23 22:15 03/09/23 22:30 Temperature Pulse Rate 82 85 78 Respiratory Rate 25 H 27 H 25 H Blood Pressure O2 Sat by Pulse Oximetry 89 L 91 L 92 L Oxygen Delivery Method Oxygen Flow Rate 03/09/23 22:45 03/09/23 23:00 03/09/23 23:00 Temperature Pulse Rate 73 94 H Respiratory Rate 21 22 Blood Pressure 156/69 O2 Sat by Pulse Oximetry 89 L 90 L Oxygen Delivery Method Oxygen Flow Rate 03/09/23 23:15 03/09/23 23:30 03/09/23 23:45 Temperature Pulse Rate 78 80 78 Respiratory Rate 25 H 28 H 28 H Blood Pressure O2 Sat by Pulse Oximetry 94 L 93 L 93 L Oxygen Delivery Method Oxygen Flow Rate 03/10/23 00:00 03/10/23 00:00 03/10/23 00:45 Temperature Pulse Rate 79 Respiratory Rate 25 H 22 Blood Pressure 168/72 O2 Sat by Pulse Oximetry 90 L Oxygen Delivery Method Oxygen Flow Rate 03/10/23 00:15 03/10/23 00:30 03/10/23 00:45 Temperature Pulse Rate 78 77 75 Respiratory Rate 23 23 24 Blood Pressure O2 Sat by Pulse Oximetry 90 L 93 L 91 L Oxygen Delivery Method Oxygen Flow Rate 03/10/23 01:00 03/10/23 01:01 03/10/23 01:01 Temperature Pulse Rate 75 70 Respiratory Rate 23 21 Blood Pressure 178/72 O2 Sat by Pulse Oximetry 90 L 93 L Oxygen Delivery Method Oxygen Flow Rate 03/10/23 04:46 03/10/23 01:15 03/10/23 05:16 Temperature Pulse Rate Respiratory Rate 22 16 16 Blood Pressure O2 Sat by Pulse Oximetry Oxygen Delivery Method Oxygen Flow Rate 03/10/23 01:15 03/10/23 01:30 03/10/23 01:45 Temperature Pulse Rate 74 72 74 Respiratory Rate 20 18 19 Blood Pressure O2 Sat by Pulse Oximetry 89 L 86 L 92 L Oxygen Delivery Method Oxygen Flow Rate 03/10/23 02:00 03/10/23 02:00 03/10/23 02:15 Temperature Pulse Rate 74 76 Respiratory Rate 19 18 Blood Pressure 160/70 O2 Sat by Pulse Oximetry 92 L 93 L Oxygen Delivery Method Oxygen Flow Rate 03/10/23 02:30 03/10/23 02:45 03/10/23 03:00 Temperature Pulse Rate 77 80 Respiratory Rate 18 19 Blood Pressure 148/67 O2 Sat by Pulse Oximetry 93 L 94 L Oxygen Delivery Method Oxygen Flow Rate 03/10/23 03:00 03/10/23 03:15 03/10/23 03:30 Temperature Pulse Rate 80 78 78 Respiratory Rate 21 20 22 Blood Pressure O2 Sat by Pulse Oximetry 94 L 94 L 97 Oxygen Delivery Method Oxygen Flow Rate 03/10/23 03:45 03/10/23 04:00 03/10/23 04:01 Temperature 98.6 F Pulse Rate 75 70 Respiratory Rate 28 H 24 Blood Pressure 160/70 O2 Sat by Pulse Oximetry 97 95 Oxygen Delivery Method Oxygen Flow Rate 03/10/23 04:01 03/10/23 04:15 03/10/23 04:30 Temperature Pulse Rate 73 73 73 Respiratory Rate 25 H 24 27 H Blood Pressure O2 Sat by Pulse Oximetry 96 95 94 L Oxygen Delivery Method Oxygen Flow Rate 03/10/23 04:45 03/10/23 05:00 03/10/23 05:00 Temperature Pulse Rate 70 73 Respiratory Rate 22 21 Blood Pressure 185/80 O2 Sat by Pulse Oximetry 95 93 L Oxygen Delivery Method Oxygen Flow Rate 03/10/23 05:03 03/10/23 05:03 03/10/23 05:15 Temperature Pulse Rate 78 71 Respiratory Rate 16 17 Blood Pressure 183/78 O2 Sat by Pulse Oximetry 94 L 92 L Oxygen Delivery Method Oxygen Flow Rate 03/10/23 05:30 03/10/23 05:45 03/10/23 06:00 Temperature Pulse Rate 75 64 Respiratory Rate 16 16 Blood Pressure 171/73 O2 Sat by Pulse Oximetry 94 L 90 L Oxygen Delivery Method Oxygen Flow Rate 03/10/23 06:00 03/10/23 06:30 03/10/23 06:45 Temperature Pulse Rate 68 62 65 Respiratory Rate 17 17 18 Blood Pressure O2 Sat by Pulse Oximetry 90 L 90 L 91 L Oxygen Delivery Method Oxygen Flow Rate 03/10/23 06:59 03/10/23 07:00 03/10/23 07:00 Temperature Pulse Rate 71 Respiratory Rate 17 Blood Pressure 172/72 O2 Sat by Pulse Oximetry 92 L Oxygen Delivery Method Nasal Cannula Oxygen Flow Rate 2 03/10/23 09:32 03/10/23 07:00 03/10/23 07:15 Temperature Pulse Rate 69 68 Respiratory Rate 15 16 27 H Blood Pressure O2 Sat by Pulse Oximetry 92 L 94 L Oxygen Delivery Method Oxygen Flow Rate 03/10/23 07:30 03/10/23 07:45 03/10/23 08:00 Temperature 98.4 F Pulse Rate 67 77 Respiratory Rate 21 28 H Blood Pressure 156/68 O2 Sat by Pulse Oximetry 93 L 93 L Oxygen Delivery Method Oxygen Flow Rate 03/10/23 08:00 03/10/23 08:15 03/10/23 08:30 Temperature Pulse Rate 79 67 73 Respiratory Rate 22 22 23 Blood Pressure O2 Sat by Pulse Oximetry 94 L 97 95 Oxygen Delivery Method Oxygen Flow Rate 03/10/23 08:45 03/10/23 09:00 03/10/23 09:00 Temperature Pulse Rate 85 70 Respiratory Rate 29 H 19 Blood Pressure 141/63 O2 Sat by Pulse Oximetry 93 L 91 L Oxygen Delivery Method Oxygen Flow Rate 03/10/23 09:15 03/10/23 09:30 03/10/23 09:45 Temperature Pulse Rate 71 74 66 Respiratory Rate 21 19 15 Blood Pressure O2 Sat by Pulse Oximetry 92 L 91 L 92 L Oxygen Delivery Method Oxygen Flow Rate 03/10/23 10:00 03/10/23 10:01 03/10/23 10:01 Temperature Pulse Rate 76 77 Respiratory Rate 22 20 Blood Pressure 140/56 O2 Sat by Pulse Oximetry 94 L 95 Oxygen Delivery Method Oxygen Flow Rate 03/10/23 11:00 03/10/23 11:01 03/10/23 11:01 Temperature Pulse Rate 67 72 Respiratory Rate 14 23 Blood Pressure 184/75 O2 Sat by Pulse Oximetry 90 L 93 L Oxygen Delivery Method Oxygen Flow Rate 03/10/23 11:15 03/10/23 11:30 03/10/23 11:45 Temperature Pulse Rate 72 68 65 Respiratory Rate 26 H 22 27 H Blood Pressure O2 Sat by Pulse Oximetry 95 93 L 94 L Oxygen Delivery Method Oxygen Flow Rate 03/10/23 12:00 03/10/23 12:01 03/10/23 12:01 Temperature 98.1 F Pulse Rate 64 68 Respiratory Rate 22 23 Blood Pressure 140/87 O2 Sat by Pulse Oximetry 95 95 Oxygen Delivery Method Oxygen Flow Rate 03/10/23 12:15 Temperature Pulse Rate 67 Respiratory Rate 27 H Blood Pressure O2 Sat by Pulse Oximetry 95 Oxygen Delivery Method Oxygen Flow Rate Labs: Laboratory Last Values WBC 5.6 X10^3/uL (3.6-10.0) 03/09/23 09:28 RBC 3.71 X10^6/uL (3.5-5.4) 03/09/23 09:28 Hgb 9.6 g/dL (12.0-16.0) L 03/09/23 09:28 Hct 29.7 % (36.0-47.0) L 03/09/23 09:28 MCV 80.0 fL (80.0-100.0) 03/09/23 09:28 MCH 25.9 pg (27.0-34.0) L 03/09/23 09:28 MCHC 32.4 g/dL (33.0-35.0) L 03/09/23 09:28 RDW 18.7 % (11.6-16.5) H 03/09/23 09:28 Plt Count 181 X10^3/uL (150.0-450.0) 03/09/23 09:28 MPV 8.1 fL (7.4-11.0) 03/09/23 09:28 Neut % (Auto) 67.8 % (42.0-75.0) 03/09/23 09:28 Lymph % (Auto) 22.1 % (21.0-51.0) 03/09/23 09:28 [place] % (Auto) 6.2 % (0.0-13.0) 03/09/23 09: Eos % (Auto) 3.0 % (0.9-2.9) H 03/09/23 09: Baso % (Auto) 0.9 % (0.2-1.0) 03/09/23 09: Neut # (Auto) 3.8 x10^3/uL (2.2-4.8) 03/09/23 09: Lymph # (Auto) 1.2 X10^3/uL (1.3-2.9) L 03/09/23 09: [place] # (Auto) 0.3 x10^3/uL (0.3-0.8) 03/09/23: Eos # (Auto) 0.2 x10^3/uL (0.0-0.2) 03/09/23 09: Baso # (Auto) 0.1 X10^3/uL (0.0-0.1) 03/09/23 09: Absolute Nucleated RBC 0.0 /100WBC 03/09/23 09: Sodium 138 mmol/L (136-145) 03/09/23 09: Corrected Sodium 142 mmol/L (136-145) 03/09/23: Potassium 4.0 mmol/L (3.5-5.1) 03/09/23 09: Chloride 105 mmol/L (98-107) 03/09/23 09: Carbon Dioxide 26.1 mmol/L (21-32) 03/09/23: BUN 11 mg/dL (7-18) 03/09/23 09: Creatinine 1.02 mg/dL (0.55-1.02) 03/09/23 09: Est GFR (MDRD) Af Amer > 60 (>60) 03/09/23 09: Est GFR (MDRD) Non-Af 57 (>60) L 03/09/23 09:28 Glucose 262 mg/dL (65-99) H 03/09/23 09: POC Glucose (mg/dL) 222 mg/dL (65-99) H 03/10/23 11:34 Calcium 7.8 mg/dL (8.5-10.1) L 03/09/23 09:28 Corrected Calcium 9.3 mg/dL (8.5-10.1) 03/09/23 09:28 Total Bilirubin 0.30 mg/dL (0.2-1.0) 03/09/23 09:28 AST 16 Units/L (15-37) 03/09/23 09:28 ALT 11 Units/L (12-78) L 03/09/23 09:28 Alkaline Phosphatase 142 Units/L (46-116) H 03/09/23 09:28 Total Protein 6.5 g/dL (6.4-8.2) 03/09/23 09:28 Albumin 2.1 g/dL (3.4-5.0) L 03/09/23 09:28 Globulin 4.4 g/dL (2.5-4.5) 03/09/23 09:28 Albumin/Globulin Ratio 0.5 Ratio (1.1-2.1) L 03/09/23 09:28 Reason For Visit: WOUND LEFT THIGH Discharge Date Discharge Date: 03/10/23 Discharge Diagnosis All Active Problems (Updated 03/08/23 @ 12:25 by Meg Arreaga) Abscess of left thigh (Acute) Atherosclerosis of [place] arteries of extremities with rest pain, left leg (Acute) Gastro-esophageal reflux disease without esophagitis (Acute) Essential (primary) hypertension (Acute) Type 2 diabetes mellitus without complications (Acute) Arthritis (Chronic) Diabetes mellitus (Chronic) Hypertension (Chronic) Plan of Treatment: Continue with present treatment and follow up plan. Pt is to keep follow up appointment as instructed and take medications as ordered. Discharge Medications Discharge Medications: No Known Drug Allergies [NKDA] Allergy (Unknown, Verified 01/27/23 16:25) Discharge Disposition Assessment: Stable no acute distress noted at time of discharge. 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 She was admitted after undergoing wide excision and placement of wound vacuum. We got her pain under control with IV Dilaudid. Cultures show Pseudomonas which is sensitive to Cipro. Home health will do the wound vacuum changes. She will be discharged on her usual medications plus Percocet, 5 mg tablets, one every six hours PRN Pain, Imodium for Diarrhea ,ciprofloxacin 500 mg BID And Monistat cream. I will see her in follow up in one week. Patient Disposition: HOME HEALTH SERVICE Condition: Stable Health Concerns: Post Hospitalization: new medications and changes needed to prevent readmission or further decline. Pt educated and given instructions on all concerns. Care Plan Goals: Problem: Infection Goal: Temperature within normal limits. Resolved infection. Instructions: Follow provided instructions. Follow up with primary physician as directed. Contact primary care physician or report to the closest Emergency Room if condition worsens. Plan of Treatment: Continue with present treatment and follow up plan. Pt is to keep follow up appointment as instructed and take medications as ordered. Assessment: Stable no acute distress noted at time of discharge. Prescriptions: New ciprofloxacin HCl [Cipro] 500 mg tablet 500 mg PO BID Qty: 20 0RF loperamide [Imodium A-D] 2 mg capsule 2 mg PO Q6H PRNQty: 20 0RF Monistat 3 200 mg/5 gram (4 %) cream 1 appful vaginal QHS 3 Days Qty: 15 0RF oxycodone-acetaminophen [Percocet] 5-325 mg tablet 1 tab PO Q6H MDD 4 PRNQty: 30 0RF Continued zolpidem 10 mg tablet 10 mg PO QPM PRN omeprazole 20 mg capsule,delayed release(DR/EC) 20 mg PO QDAY montelukast 10 mg tablet 10 mg PO QDAY lisinopril 40 mg tablet 40 mg PO QDAY Janumet 50-500 mg tablet 1 tab PO BID dexlansoprazole [Dexilant] 30 mg capsule,biphase delayed releas 30 mg PO QDAY insulin degludec [Tresiba FlexTouch U-100] 100 unit/mL (3 mL) insulin pen See Rx Instructions .ROUTE .COMPLEX Label Comments: [NO ORIGINAL SIG] Rx Instructions: once daily Follow ups/Referrals Follow ups/Referrals: Johnny Gallo [Primary Care Provider] - 03/17/23 2:00 pm Instructions Instructions: Negative Pressure Wound Therapy Home Guide, Incision and Drainage, Care After, Infection Prevention in the Home, You've Been Prescribed an Antibiotic in the Hospital for an Infection - [facility] Activity Restrictions/Additional Instructions: I Wound [facility]AC. [facility]. Stand Alone Forms: Excuse From Work or School
[2023-03-10 15:03] VITALS: BP 165/66
[2023-03-10] MEDS ORDERED: STERILE WATER IRRIGATION IR ONE (15:18)
== END 2023-03-10 15:35 | disposition home health service (06) | DRG 594 ==
LOC: SURG1 06:39 → ICU 08:43
PROVIDERS: ADMIT Surgery; ATTEND Surgery
PROC: WOUNDCL (2023-03-08 07:40)
DX: E11.65 Type 2 diabetes mellitus with hyperglycemia; L97.123 Non-pressure chronic ulcer of left thigh with necrosis of muscle; X58.XXXD Exposure to other specified factors, subsequent encounter; I10 Essential (primary) hypertension; K21.9 Gastro-esophageal reflux disease without esophagitis; S71.102D Unspecified open wound, left thigh, subsequent encounter